=== PATIENT | male | born 1995 | race Two or more races ===

== ENCOUNTER 2020-02-25 18:17 | Emergency (ER) | payer SELFPAY ==
[~2020-02-25] VITALS: Ht 175.3 cm; Wt 97.5 kg
[2020-02-25 18:46] VITALS: BP 130/85
[2020-02-25 19:07] LABS: Basophils # (auto) 0 10 ^3/uL (0-0.2); Basophils % (auto) 0.5 % (0.0-2.0); Eosinophils # (auto) 0 10 ^3/uL (0-0.8); Eosinophils % (auto) 0.5 % (0.0-7.0); Hematocrit 42.9 % (41.0-53.0); Hemoglobin 14.2 g/dL (13.5-17.5); Mean Corpuscular Hemoglobin 29.8 pg (28.0-32.0); Mean Corpuscular Hgb Conc. 33.1 g/dL (32.0-36.0); Mean Corpuscular Volume 89.9 fL (80.0-100.0); Monocytes # (auto) 0.5 10 ^3/uL (0-1.3); Monocytes % (auto) 6.6 % (0.0-12.0); Neutrophils % (auto) 52.4 % (37.0-80.0); Nucleated Red Blood Cells % 0.2 %; Platelet Count (auto) 202 10^3/uL (140-450); Red Blood Cells 4.77 10^6/uL (4.5-5.90); Red Cell Distribution Width 12.8 % (11.8-14.3); White Blood Cell 7.6 10^3/uL (4.4-10.8)
[2020-02-25 19:28] LABS: Alanine Aminotransferase 31 U/L (16-61); Albumin 4.1 g/dL (3.4-5.0); Anion Gap 3 (5-15); Blood Urea Nitrogen 17 mg/dL (7-18); Calcium 9.1 mg/dL (8.5-10.1); Carbon Dioxide 29 mmol/L (21-32); Chloride 106 mmol/L (98-107); Glucose 97 mg/dL (74-106); Potassium 3.7 mmol/L (3.5-5.1); Sodium 138 mmol/L (136-145)
[2020-02-25 19:33] LABS: Alkaline Phosphatase 63 U/L (45-117); Aspartate Aminotransferase 17 U/L (15-37); BUN/Creatinine Ratio 18.5; Bilirubin, Total 0.2 mg/dL (0.2-1.0); GFR African American 130 mL/min; GFR Non-African American 107 mL/min; Total Protein 7.8 g/dL (6.4-8.2)
== END 2020-02-25 20:45 | disposition home or self-care (01) ==
LOC: ER 18:18
DX: F41.9 Anxiety disorder, unspecified (principal); J06.9 Acute upper respiratory infection, unspecified
CPT/HCPCS: 36415; 71045; 80053; 84484; 85025; 87635; 93005

== ENCOUNTER 2020-09-24 04:18 | Emergency (ER) | payer SELFPAY ==
[~2020-09-24] VITALS: Ht 175.3 cm; Wt 90.7 kg
[2020-09-24 05:18] VITALS: BP 102/63
[2020-09-24 06:37] LABS: Urine Bacteria NONE SEEN /hpf (None Seen); Urine Blood Negative /uL (Negative); Urine Hyaline Cast FEW /lpf (0 - 2); Urine Mucus FEW (None Seen); Urine Specific Gravity 1.028 (1.001-1.035); Urine WBC 2 /hpf (0 - 3)
[2020-09-24 06:54] LABS: Amphetamine Screen, Urine NEGATIVE (NEGATIVE); Barbiturate Scree,Urine NEGATIVE (NEGATIVE); Benzodiazephine Screen, Urine NEGATIVE (NEGATIVE); Cocaine Screen, Urine NEGATIVE (NEGATIVE); Opiate Scree,Urine NEGATIVE (NEGATIVE); Phencyclidine Screen, Urine NEGATIVE (NEGATIVE)
[2020-09-24 07:04] LABS: Cannabinoid Screen, Urine POSITIVE (NEGATIVE)
== END 2020-09-24 06:37 | disposition home or self-care (01) ==
LOC: ER 04:18 → EDBD 04:18 → ER 06:37
DX: T65.91XA Toxic effect of unspecified substance, accidental (unintentional), initial encounter (principal); J18.9 Pneumonia, unspecified organism; Z20.822 Contact with and (suspected) exposure to COVID-19; Y92.89 Other specified places as the place of occurrence of the external cause
CPT/HCPCS: 71250; 80307; 81001; 93005

== ENCOUNTER 2021-09-01 16:26 | Emergency (ER) | payer SELFPAY ==
[~2021-09-01] VITALS: Ht 175.3 cm; Wt 90.7 kg
[2021-09-01 16:26] VITALS: BP 113/58
[2021-09-01 17:27] LABS: Albumin 4.8 g/dL (3.4-5.0); Anion Gap 10 (5-15); Blood Alcohol < 3.0 mg/dL (0-5); Blood Urea Nitrogen 11 mg/dL (7-18); Calcium 10.4 mg/dL (8.5-10.1); Carbon Dioxide 21 mmol/L (21-32); Chloride 106 mmol/L (98-107); Glucose 117 mg/dL (74-106); Magnesium 1.9 mg/dL (1.6-2.6); Potassium 3.7 mmol/L (3.5-5.1); Sodium 137 mmol/L (136-145)
[2021-09-01 17:28] LABS: Salicylate < 1.7 mg/dL (2.8-20.0)
[2021-09-01 17:29] LABS: Acetaminophen < 2.0 ug/mL (10-30)
[2021-09-01 17:32] LABS: Alanine Aminotransferase 35 U/L (16-61); Alkaline Phosphatase 91 U/L (45-117); Aspartate Aminotransferase 32 U/L (15-37); BUN/Creatinine Ratio 11.7; Bilirubin, Total 0.4 mg/dL (0.2-1.0); GFR African American 126 mL/min; GFR Non-African American 104 mL/min; Total Protein 8.8 g/dL (6.4-8.2)
[2021-09-01 18:55] LABS: Urine Bacteria NONE SEEN /hpf (None Seen); Urine Blood Negative /uL (Negative); Urine Specific Gravity 1.022 (1.001-1.035); Urine WBC <1 /hpf (0 - 3)
[2021-09-01 20:15] LABS: Alcohol, Urine < 3.0 mg/dL (0-10); Amphetamine Screen, Urine NEGATIVE (NEGATIVE); Barbiturate Scree,Urine NEGATIVE (NEGATIVE); Benzodiazephine Screen, Urine NEGATIVE (NEGATIVE); Cannabinoid Screen, Urine NEGATIVE (NEGATIVE); Cocaine Screen, Urine NEGATIVE (NEGATIVE); Opiate Scree,Urine NEGATIVE (NEGATIVE); Phencyclidine Screen, Urine NEGATIVE (NEGATIVE)
== END 2021-09-01 20:15 | disposition left against medical advice (07) ==
LOC: ER 16:26
DX: R41.82 Altered mental status, unspecified (principal); R42 Dizziness and giddiness; Z53.29 Procedure and treatment not carried out because of patient's decision for other reasons
CPT/HCPCS: 36415; 71045; 80053; 80307; 80320; 80329; 81001; 83735